=== PATIENT | female | born 1995 | race Two or more races ===

== ENCOUNTER 2017-05-04 12:01 | Inpatient (IN) | payer OTHER ==
[~2017-05-04] VITALS: Ht 149.9 cm; Wt 3.6 kg
[~2017-05-04 12:01] MED LIST: PRENATABS RX T1 EACH
[2017-05-09] MEDS ORDERED: PERCOCET 5-3251 EACH PO (15:54)
[2017-05-09] MEDS ORDERED: GAS RELIEF125 MG PO (15:54)
[2017-05-09] MEDS ORDERED: KETO10TA2 PO (15:54)
[2017-05-09] MEDS ORDERED: COLACE100 MG PO (15:54)
== END 2017-05-09 16:08 | disposition home or self-care (01) | DRG 765 ==
LOC: LDR 12:01 → OB/GYN 05-06 21:32 → SURG-SUITE 05-07 12:38
PROVIDERS: Obstetrics & Gynecology
PROC: 4A1HXCZ Monitoring of Products of Conception, Cardiac Rate, External Approach (ICD-10-PCS; 2017-05-04)
PROC: 3E033VJ Introduction of Other Hormone into Peripheral Vein, Percutaneous Approach (ICD-10-PCS; 2017-05-06)
PROC: 4A033R1 Measurement of Arterial Saturation, Peripheral, Percutaneous Approach (ICD-10-PCS; 2017-05-06)
PROC: 10D00Z1 Extraction of Products of Conception, Low, Open Approach (ICD-10-PCS; principal; 2017-05-06 20:00)
DX: O62.1 Secondary uterine inertia (principal); O98.513 Other viral diseases complicating pregnancy, third trimester; O36.8130 Decreased fetal movements, third trimester, not applicable or unspecified; O48.0 Post-term pregnancy; Z3A.40 40 weeks gestation of pregnancy; O61.0 Failed medical induction of labor; Z37.0 Single live birth; O99.820 Streptococcus B carrier state complicating pregnancy

== ENCOUNTER 2025-02-26 12:36 | Outpatient (CLI) | payer OTHER ==
[~2025-02-26 12:36] MED LIST changes: +COLACE100 MG PO; +GAS RELIEF125 MG PO; +KETO10TA2 PO; +PERCOCET 5-3251 EACH PO
== END 2025-02-26 12:37 | disposition home or self-care (01) ==
LOC: PRENATAL 12:36
PROVIDERS: ATTEND Obstetrics & Gynecology Maternal & Fetal Medicine
DX: O44.02 Complete placenta previa NOS or without hemorrhage, second trimester (principal); O34.219 Maternal care for unspecified type scar from previous cesarean delivery; Z3A.21 21 weeks gestation of pregnancy